=== PATIENT | female | born 1975 | race Caucasian/White ===

== ENCOUNTER 2019-12-10 19:08 | Observation (INO) | payer MEDICAID ==
[~2019-12-10] VITALS: Ht 152.4 cm; Wt 118.2 kg
--- NOTE | ~2019-12-10 | HEMODYNAMI ---
PATIENT:MERLE GONZALEZ MEDICAL RECORD: [id number] : 75 LOCATION:[facility] D.2116 ADMISSION DATE: 12/10/19 Generatedon:12/11/201913:39 Patient name: MERLE GONZALEZ Patient #: [id number] SSN: [id number] : 1975 Date of study: 12/11/2019 Page: Of Hemodynamic Procedure Report Patient Data Patient Demographics Procedure consent was obtained First Name: MERLE Gender: Female Last Name: LISA : 1975 Middle Initial: RAJINDER Age: 44 year(s) Patient #: [id number] Race: SSN: [id number] Additional ID: [id number] Contact details [address]: [address] [place] [address] State: [place] City: [place] Zip code: [address] Admission Admission Data Admission Date: 12/10/2019 Admission Time: 21:36 Arrival Date: 12/11/2019 Arrival Time: 13:00 Admit Source: Other Insurance Payor: Medicaid Room #: D.2116 [facility] #: [id number] Height (in.): 59.84 BSA: 2.08 (m2) Height (cm.): 152 BMI: 51.07 (kg/m2) Weight (lbs.): 260.15 Weight (kg.): 118 Lab Results Lab Result Date: 12/11/2019 Lab Result Time: 0:00 Biochemistry Name Units Result Min Max BUN mg/dl 13 --(--*-)-- 7 18 Creatinine mg/dl 1 --(--*-)-- 0.6 1.3 eGFR ml/min 64.55762 *-(----)-- 90 120 NONAFRICAN CBC Name Units Result Min Max Hemoglobin g/dl 12.7 -*(----)-- 13.5 17.5 Procedure Procedure Types Cath Procedure Diagnostic Procedure LHC LH w/Coronaries Sedation Charges Moderate Sedation up to 15 minutes Procedure Description Procedure Date Procedure Date: 12/11/2019 Procedure Start Time: 13:24 Procedure End Time: 13:31 Procedure Staff Name Function Maru Perez RT Monitor Juan Landin RN Nurse Home Simental MD Performing Physician Idania Faustin RT Scrub Procedure Data Cath Procedure Fluoroscopy Diagnostic fluoroscopy Total fluoroscopy Time: 0.7 time: 0.7 min min Diagnostic fluoroscopy Total fluoroscopy dose: 310 dose: 310 mGy mGy Contrast Material Contrast Material Type Amount (ml) Isovue 300 29 Entry Location Entry Primary Successful Side Size Upsize Upsize Entry Closure Succes sful Closure Location (Fr) 1 (Fr) 2 (Fr) Remarks Device Remarks Femoral Right 5 Fr Exoseal artery Estimated blood loss: 5 ml Diagnostic catheters Device Type Used For End Catheter Placement MULTIPACK JL 4.0 5Fr Left Coronary catheter Angiography MULTIPACK 3DRC 5Fr Right Coronary catheter Angiography MULTIPACK Pigtail 5 Fr LV Angiography catheter Procedure Complications No complications Procedure Medications Medication Administration Route Dosage Oxygen etCO2 Nasal cannula 2 l/min Lidocaine 2% added to field 20 Heparin Flush Bag added to field 2 bags (1000units/500ml NS) 0.9% NaCl I.V. 100 ml/hr Versed I.V. 2 mg Fentanyl I.V. 100 mcg Versed I.V. 2 mg Fentanyl I.V. 50 mcg Versed I.V. 1 mg Fentanyl I.V. 50 mcg Versed I.V. 2 mg Hemodynamics Rest BSA: 2.08 (m2) HGB: 12.7 (g/dl) O2 Consumption: Estimated: 207.77 (ml/min) O2 Co nsumption indexed: Estimated:99.89 (ml/min/m) Heart Rate: 69 (bpm) Pressure Samples Time Site Value (mmHg) Purpose Heart Use Rate(bpm) 13:28 LV 98/2,2 Snapshot 68 13:29 AO 107/71(88) Pullback 87 Gradients Valve Time Site Site 2 Mean SEP/DFP Peak To Heart Use 1 (mmHg) (sec/min) Peak Rate (mmHg) (bpm) Aortic 13:29 LV AO 87 107/71(88) Snapshots Pre Cath Intra NCS Post Cath Vital Signs Time Heart Resp SPO2 etCO2 NIBP (mmHg) Rhythm Pain Sedation Rate (ipm) (%) (mmHg) Status Level (bpm) 13:04:18 74 19 95 18.7 127/72(99) NSR 0 (11) 10(A) , No pain 13:08:34 74 11 100 27.7 120/73(92) NSR 0 (11) 10(A) , No pain 13:12:43 68 24 92 27.7 118/82(97) NSR 0 (11) 10(A) , No pain 13:16:53 69 16 95 31.5 114/78(100) NSR 0 (11) 10(A) , No pain 13:21:03 75 16 94 33.7 125/71(118) NSR 0 (11) 10(A) , No pain 13:25:17 68 19 95 24 115/62(87) NSR 0 (11) 10(A) , No pain 13:29:27 71 21 95 24.7 119/74(94) NSR 0 (11) 10(A) , No pain Medications Time Medication Route Dose Verified Delivered Reason Notes Eff ectiveness by by 13:06:43 Oxygen etCO2 2 Home Buffie used for Nasal l/min St Oral Landin special makeup fx artist instructor cannula 13:06:49 Lidocaine 2% added 20ml Home Home for local to vial Count Includes [facility] anesthetic field MD BILL 13:06:54 Heparin Flush added 2 Home Home used for Bag to bags Count Includes [facility] procedure (1000units/500ml field MD BILL NS) 13:07:02 0.9% NaCl I.V. 100 Home Buffie Per ml/hr St Oral Landin RN physician 13:07:12 Versed I.V. 2 mg Home Buffie for HolaOral Landin RN sedation 13:07:18 Fentanyl I.V. 100 Home Buffie for mcg HolaOral Landin RN sedation 13:13:40 Versed I.V. 2 mg Home Buffie for HolaOral Landin RN sedation 13:13:43 Fentanyl I.V. 50 Home Buffie for mcg HolaOral Landin RN sedation 13:20:14 Fentanyl I.V. 50 Home Buffie for mcg HolaOral Landin RN sedation 13:20:58 Versed I.V. 1 mg Home Buffie for HolaOral Landin RN sedation 13:26:02 Versed I.V. 2 mg Home Buffie for HolaOral Landin RN sedation Procedure Log Time Note 12:31:17 Diagnostic Cath Status : Elective 12:32:07 Informed consent obtained and on chart 12:33:11 Admit Source: Other 12:33:12 Arrival Date: 12/11/2019 1:00:00 PM 12:33:45 Insurance Payor : Medicaid 12:33:48 Patient Height : 59.84 inches 12:33:51 Patient Weight : 260.15 lbs 12:34:29 Lab Result : eGFR NONAFRICAN 64.46353 ml/min 12:34:29 Lab Result : Hemoglobin 12.7 g/dl 12:34:29 Lab Result : BUN 13 mg/dl 12:34:29 Lab Result : Creatinine 1 mg/dl 12:34:35 Procedure Status Urgent Heart Cath (IP). 12:34:38 Idania JUAREZ(R) sent for patient. Start room use. 12:34:39 Time tracking: Regular hours (M-F 7:00 - 5:00) 12:34:43 Plan of Care:Hemodynamics will remain stable., Cardiac rhythm will remain stable., Comfort level will be maintained., Respiratory function will remain adequate., Patient/ family verbilizes understanding of procedure., Procedure tolerated without complication., Recovers from procedure without complications.. 13:03:07 Vital chart was started 13:03:55 Patient received from Med II to CCL 2 Alert and oriented. Tansferred to table in Supine position. 13:03:58 Warm blankets applied, and kaila hugger turned on for patient comfort. 13:04:00 ECG and BP/O2 sat monitors applied to patient. 13:04:00 Correct patient and procedure confirmed by team. 13:04:01 Baseline sample Acquired. 13:04:04 Rhythm: sinus rhythm 13:04:07 Full Disclosure recording started 13:04:11 H&P Date Dictated: 12/11/2019 Within 30 days and on chart., H&P Addendum completed by physician on day of procedure. (MUST COMPLETE FOR ALL OUTPATIENTS). 13:04:14 Pre-op teaching completed and patient verbalized understanding. 13:04:14 Pre-procedure instructions explained to patient. 13:04:16 Family in patients room. 13:04:32 Is the patient allergic to Iodine/contrast media? No. 13:04:33 Was the patient premedicated? Yes 13:04:42 Is patient on blood thinner?Yes 13:04:47 ACC The patient was administered the following blood thiners within the last 24 hours: ACCPlavix 13:04:51 Patient diabetic? No. 13:04:55 Previous problem with sedation/anesthesia? No ? 13:04:59 Snore? Yes 13:05:01 Sleep apnea? No 13:05:03 Opens mouth fully? Yes 13:05:03 Deviated septum? No 13:05:04 Sticks out tongue? Yes 13:05:08 Airway obstruction? No ? 13:05:11 Dentures? No ? 13:05:15 Pre procedure: right dorsailis pedis pulse 2+ Normal; easily identifiable; not easily obliterated 13:05:17 Pre procedure: left dorsailis pedis pulse 2+ Normal; easily identifiable; not easily obliterated 13:05:20 Patient pain scale 0/10 ?. 13:05:25 IV patent on arrival in left forearm with 0.9% NaCl at KVO. 13:05:29 Lab results completed and on chart. 13:05:58 Stress Test: no; N/A ? 13:06:03 Right groin area was prepped with chlora-prep and draped in sterile fashion 13:06:04 Sharps counted by scrub and verified by R.N. 13:06:04 Alarms reviewed by R. N. 13:06:05 Physician arrived 13:06:06 Final Timeout: patient, procedure, and site verified with staff and physician. All members of the team are in agreement. 13:06:06 --------ALL STOP TIME OUT------ 13:06:08 Right groin site verified by team. 13:06:11 Fire Safety Assessment: A--An alcohol-based skin anteseptic being used preoperatively., C--Open oxygen or nitrous oxide is being used., D--An ESU, laser, or fiber-optic light is being used. 13:06:14 Physical assessment completed. ASA score P 2 - A patient with mild systemic disease as per Home Simental MD. 13:06:43 Oxygen 2 l/min etCO2 Nasal cannula was administered by Juan Landin RN; used for procedure; Verbal order read back and verified. 13:06:49 Lidocaine 2% 20ml vial added to field was administered by Home Simental MD; for local anesthetic; Verbal order read back and verified. 13:06:54 Heparin Flush Bag (1000units/500ml NS) 2 bags added to field was administered by Home Simental MD; used for procedure; Verbal order read back and verified. 13:07:02 0.9% NaCl 100 ml/hr I.V. was administered by Juan Landin RN; Per physician; Verbal order read back and verified. 13:07:12 Versed 2 mg I.V. was administered by Juan Landin RN; for sedation; Verbal order read back and verified. 13:07:18 Fentanyl 100 mcg I.V. was administered by Juan Landin RN; for sedation; Verbal order read back and verified. 13:08:40 2) 60-89 Mildly reduced kidney function, and other findings (as for stage 1) point to kidney disease. 13:09:38 Maximum allowable contrast dose (3.7 X eGFR X 0.75)177.6 ml. 13:09:42 Sedation plan: IV Moderate Sedation Medication:Versed, Fentanyl 13:12:48 Use device set Femoral Dx 13:12:49 ACIST Syringe (53083) opened to sterile field. 13:12:50 Medline Cath Pack ([id number]) opened to sterile field. 13:12:50 Bag Decanter (2002S) opened to sterile field. 13:12:51 ACIST Hand Control (48743) opened to sterile field. 13:12:52 DIAGNOSTIC Multipack 5Fr catheter set (QB4559) opened to sterile field. 13:12:52 ACIST Manifold (10973) opened to sterile field. 13:12:53 Tegaderm 4 x 4 (1626W) opened to sterile field. 13:12:54 EMERALD Guide Wire (854-516) opened to sterile field. 13:12:54 SHEATH 5FR Darien (CBX468) opened to sterile field. 13:13:40 Versed 2 mg I.V. was administered by Juan Landin RN; for sedation; Verbal order read back and verified. 13:13:43 Fentanyl 50 mcg I.V. was administered by Juan Landin RN; for sedation; Verbal order read back and verified. 13:20:14 Fentanyl 50 mcg I.V. was administered by Juan Landin RN; for sedation; Verbal order read back and verified. 13:20:58 Versed 1 mg I.V. was administered by Juan Landin RN; for sedation; Verbal order read back and verified. 13:24:16 Procedure started. 13:24:29 Local anesthetic to right femoral artery with Lidocaine 2% by Home Simental MD.INITIAL ACCESS ONLY 13:24:41 A 5 Fr sheath was inserted into the Right Femoral artery 13:25:51 A MULTIPACK JL 4.0 5Fr catheter was advanced over the wire and used for Left Coronary Angiography. 13:26:02 Versed 2 mg I.V. was administered by Juan Landin RN; for sedation; Verbal order read back and verified. 13:27:12 Injector settings: Ml/sec: 3, Volume: 6, 13:27:19 Catheter removed. 13:27:24 A MULTIPACK 3DRC 5Fr catheter was advanced over the wire and used for Right Coronary Angiography. 13:27:59 RCA angiography performed. 13:28:02 Injector settings: Ml/sec: 3, Volume: 6, 13:28:05 Catheter removed. 13:28:36 A MULTIPACK Pigtail 5 Fr catheter was advanced over the wire and used for LV Angiography. 13:28:51 LV hemodynamics recorded. 13:28:53 LV gram done using CHAUHAN 13:28:56 Injector settings: Ml/sec: 5, Volume: 15, 13:29:05 EF : 55 % 13:29:08 ACCDominant side:Right 13:29:19 Catheter removed. 13:29:21 EXOSEAL 5Fr (EX500) opened to sterile field. 13:29:31 Sheath removed intact; hemostasis achieved with Exoseal to the Right Femoral artery. 13:29:33 Procedure ended.(Physican Out) 13:30:08 Fluoroscopy time 00.70 minutes. 13:30:10 Fluoroscopy dose: 310 mGy 13:30:10 Flurop Dose total: 310 13:30:16 Dose Area Product 12345 mGy/cm. 13:30:19 Contrast amount:Isovue 300 29ml. 13:30:21 Maximum allowable dose exceeded? No. 13:30:22 Sharps counted by scrub and verified by R.N. 13:30:23 Insertion/operative site no bleeding no hematoma. 13:30:26 Post-op/insertion site Right Femoral artery dressed using a 4 x 4 and Tegaderm. 13:30:29 Post procedure rhythm: unchanged. 13:30:32 Estimated blood loss: 5 ml 13:30:34 Patient needs reinforcement of post procedure teaching. 13:30:34 Post procedure instruction explained to patient.Patient verbalizes understanding. 13:30:45 Procedure type changed to Cath procedure, Diagnostic procedure, LHC, C w/Coronaries, Sedation Charges, Moderate Sedation up to 15 minutes 13:30:47 Procedure and supply charges have been captured, reviewed, submitted and are correct. 13:31:04 Procedure Complication : No complications 13:31:10 Vital chart was stopped 13:31:13 [facility] Findings: mild to moderate CAD (<70%) 13:31:14 Operative report dictated upon procedure completion. 13:31:15 See physician's report for complete and final results. 13:31:16 Report given to Pre/Post Procedure Room. 13:31:30 Patient transfered to [facility] with Stretcher. 13:31:33 Full Disclosure recording stopped 13:31:33 Procedure ended. 13:31:39 End room use (Document Last) 13:32:03 End room use (Document Last) 13:32:27 End room use (Document Last) Device Usage Item Name Manufacture Quantity Catalog Hospital Part Current Minimal L ot# / Number Charge Number Stock Stock Serial# Code ACIST Acist 1 [id number] 146349 520411 195889 20 Syringe Medical (75921) Systems Inc Bag Microtek 1 2001S 208708 01041 943775 5 Decanter Medical Inc. () Medline Medline 1 [id number] 014099 32876 758405 5 Cath Pack ([id number]) ACIST Hand Acist 1 55816 856152 840353 976505 5 Control Medical (76064) Systems Inc ACIST Acist 1 91366 938302 878735 546045 5 Manifold Medical (81890) Systems Inc DIAGNOSTIC Cardinal 1 [id number] 651354 29764 136691 30 Multipack Health 5Fr catheter set (CN9662) Tegaderm 4 3M 1 1626W 168125 334130 226131 5 x 4 (1626W) SHEATH 5FR Terumo 1 HVG229 759556 276721 465112 5 [place] (OHH209) EMERALD Cardinal 1 502-455 951098 471010 071920 5 Guide Wire Ganjiwang (519-067) MULTIPACK Cardinal 1 407017 5 JL 4.0 5Fr Health catheter MULTIPACK Cardinal 1 342989 5 3DRC 5Fr Health catheter MULTIPACK Cardinal 1 995006 5 Pigtail 5 Health Fr catheter EXOSEAL 5Fr Cardinal 1 EX500 144832 165877 221879 10 (EX500) Health Signature Audit [place] Stage Time Signature Unsigned Intra-Procedure 12/11/2019 Maru Perez 1:32:03 PM RT(R) Intra-Procedure 12/11/2019 uJan Landin RN 1:32:27 PM Intra-Procedure 12/11/2019 Home Simental MD 1:32:46 PM Oral BILL 12/11/2019 1:33:26 PM Intra-Procedure 12/11/2019 Home Ny 1:39:28 PM Oral BILL Signatures Monitor : Maru Perez RT Signature : Date : Time : Nurse : Juan Landin RN Signature : Date : Time : Performing Physician : Signature : Home Simental MD Date : Time : [facility] [address] [place] [address]
[2019-12-10 19:41] VITALS: BP 119/78
--- NOTE | 2019-12-10 19:55 | NUR ---
NOTIFIED DR REESE AND REVIEWED PT's BEHAVIOR AND ASSESMENT RESULTS. PT IS A LOW RISK PER DR REESE. DR REESE STATED TO GIVE RESOURCES TO PT AT TIME OF DISCHARGE . NO FURTHER ORDERS AT THIS TIME. REVIEWED RESOURCE WITH PT AND SHE VERBALIZED UNDERSTANDING.
--- NOTE | 2019-12-10 19:59 | NUR ---
PT EVALUATED BY PANKAJ RODAS. FOUND TO BE LOW RISK.
[2019-12-10 20:18] LABS: BASOPHILS 0.3 % (0-2); EOSINOPHILS 0.9 % (0-7); HEMATOCRIT 38.8 % (36.0-48.0); HEMOGLOBIN 12.9 g/dL (12-16); IMMATURE GRANULOCYTES 0.3 % (0-5); LYMPHOCYTES 36.5 % (15-50); MCH 27.7 pg (26.0-34.0); MCHC 33.2 g/dL (31.0-37.0); MCV 83.3 fL (80.0-100.0); MONOCYTES 4.8 % (2-11); NEUTROPHILS 57.2 % (40-80); PLATELET COUNT 298 10x3/uL (130-400); RBC 4.66 10x6/uL (4.00-5.40); RDW 13.6 % (11.5-14.5); WBC 11.5 10x3/uL (4.8-10.8)
[2019-12-10 20:33] LABS: APTT 42.5 SECONDS (22.8-39.4)
[2019-12-10 20:34] LABS: D-DIMER-QUANTITATIVE 0.31 ug/mLFEU (0.20-0.54)
[2019-12-10 20:39] LABS: CALC OSMOLALITY 270 mosm/kg (275-300); CALCIUM 8.8 mg/dL (8.5-10.1); CARBON DIOXIDE 21.7 mmol/L (21.0-32.0); CHLORIDE - SERUM 103 mmol/L (98-107); CREATININE - SERUM 0.8 mg/dL (0.6-1.3); GLUCOSE 89 mg/dL (74-106); POTASSIUM - SERUM 3.5 mmol/L (3.5-5.1); SODIUM 137 mmol/L (136-145); UREA NITROGEN 7 mg/dL (7-18); eGFR NON AFRICAN AMERICAN 82 mL/min (90-120)
[2019-12-10 20:47] VITALS: BP 126/67
[2019-12-10 20:48] LABS: INR 1.05 (0.85-1.17); PROTIME 13.6 SECONDS (11.6-15.0)
[2019-12-10 20:51] LABS: ALBUMIN 3.3 g/dL (3.4-5.0); ALKALINE PHOSPHATASE 37 U/L (30-120); ALT (SGPT) 31 U/L (10-68); BILIRUBIN - TOTAL 0.53 mg/dL (0.2-1.3); CKMB 0.1 U/L (0.0-3.6); CREATINE KINASE 67 UL (21-215); MAGNESIUM - SERUM 1.9 mg/dL (1.8-2.4); PROTEIN - SERUM 7.7 g/dL (6.4-8.2)
[2019-12-10 20:52] LABS: TROPONIN-I < 0.017 ng/mL (0.000-0.060)
[2019-12-10] MEDS ORDERED: CYCLOBENZAPRINE10 MG PO (22:53)
[2019-12-10] MEDS ORDERED: ULTRAM50 MG PO (22:54)
[2019-12-10] MEDS ORDERED: GABAPENTIN300 MG PO (22:55)
[2019-12-11 00:56] VITALS: Ht 152.4 cm; Wt 118.2 kg
[2019-12-11 04:34] VITALS: BP 94/51
[2019-12-11 07:04] LABS: BASOPHILS 0.3 % (0-2); EOSINOPHILS 1.3 % (0-7); HEMATOCRIT 39.3 % (36.0-48.0); HEMOGLOBIN 12.7 g/dL (12-16); IMMATURE GRANULOCYTES 0.4 % (0-5); LYMPHOCYTES 29.6 % (15-50); MCH 27.4 pg (26.0-34.0); MCHC 32.3 g/dL (31.0-37.0); MCV 84.9 fL (80.0-100.0); MEAN PLATELET VOLUME 10.3 fL (7.4-10.4); MONOCYTES 6.1 % (2-11); NEUTROPHILS 62.3 % (40-80); RBC 4.63 10x6/uL (4.00-5.40); RDW 13.8 % (11.5-14.5)
[2019-12-11 07:11] LABS: PLATELET COUNT 377 10x3/uL (130-400); WBC 7.6 10x3/uL (4.8-10.8)
[2019-12-11 07:57] LABS: ALBUMIN 3.2 g/dL (3.4-5.0); ALKALINE PHOSPHATASE 38 U/L (30-120); ALT (SGPT) 32 U/L (10-68); BILIRUBIN - TOTAL 0.49 mg/dL (0.2-1.3); CALC OSMOLALITY 275 mosm/kg (275-300); CALCIUM 8.6 mg/dL (8.5-10.1); CARBON DIOXIDE 25.1 mmol/L (21.0-32.0); CHLORIDE - SERUM 103 mmol/L (98-107); CKMB 0.2 U/L (0.0-3.6); CREATINE KINASE 60 UL (21-215); GLUCOSE 98 mg/dL (74-106); PHOSPHOROUS 3.6 mg/dL (2.5-4.9); PROTEIN - SERUM 7.4 g/dL (6.4-8.2); SODIUM 138 mmol/L (136-145); THYROID STIMULATING HORMONE 1.18 uIU/mL (0.36-3.74); TROPONIN-I < 0.017 ng/mL (0.000-0.060); eGFR NON AFRICAN AMERICAN 64 mL/min (90-120)
[2019-12-11 08:02] LABS: UREA NITROGEN 13 mg/dL (7-18)
[2019-12-11 09:08] LABS: LDL-HDL RATIO 2.6 ratio (1.5-3.5)
--- NOTE | 2019-12-11 09:15 | NUR ---
CONSENTS SIGNED FOR [facility]. WILL CONT. PLAN OF CARE.
[2019-12-11 09:30] VITALS: BP 123/73
[2019-12-11 10:36] LABS: BILIRUBIN NEGATIVE (NEGATIVE); GLUCOSE NEGATIVE (NEGATIVE); KETONE NEGATIVE (NEGATIVE); NITRITE NEGATIVE (NEGATIVE); SPECIFIC GRAVITY 1.015 (1.005-1.020); UROBILINOGEN NORMAL (NORMAL); WHITE CELLS - URINE 0-5 /hpf (NEGATIVE)
[2019-12-11 10:37] LABS: BACTERIA FEW /hpf (NEGATIVE); EPITHELIAL CELLS OCC /hpf (0-5)
--- NOTE | 2019-12-11 13:00 | NUR ---
PRE-OPS GIVEN. TO HOME HEALTH ADMINISTRATOR BY BED.
[2019-12-11 13:44] VITALS: BP 124/87
--- NOTE | 2019-12-11 14:00 | NUR ---
BACK FROM [employer]. VS WNL. RIGHT GROIN STABLE WITHOUT BLEEDING OR HEMATOMA NOTED. WILL MONITOR.
--- NOTE | 2019-12-11 16:00 | NUR ---
BED REST UP. GROIN STABLE.
--- NOTE | 2019-12-11 16:48 | NUR ---
IV AND TELEMETRY DCD. DC PLANS GIVEN. UNDERSTANDING VOICED. ESCORTED TO CAR BY W/C.
--- NOTE | 2019-12-12 09:04 | MORECARE ---
CASE MANAGEMENT DISCHARGE SUMMARY PATIENT: MERLE GONZALEZ UNIT: [id number] ADM DATE: 12/10/19 AGE: 44 : [birth year] SEX: F ROOM/BED: D.9616 AUTHOR: SHARI FREEMAN PHYSICIAN: REFERRING PHYSICIAN: ANGI MCGOWAN MD DATE OF SERVICE: 12/12/19 Discharge Plan Patient Name: MERLE [facility]ONZALEZ [facility] [facility] 1975 Planned Disposition: Home Anticipated Discharge Date: 12/11/19 Discharge Date: 12/11/2019 Expected LOS: 1 Initial Reviewer: [email or web address] Initial Review Date: 12/12/2019 Generated: 12/12/19 10:03 am Patient Name: MERLE GONZALEZ Page [id number] at 0904 All edits/amendments must be made on the electronic document DICTATION DATE: 12/12/19902 REFRACTORY MANAGER: LINDA 12/12/19 09 RPT#: [id number] DC DATE:12/11/19 STATUS: DIS IN [facility] [address] [place] [address] END OF REPORT
--- NOTE | 2019-12-12 09:07 | CN ---
PATIENT NAME:LEE ANN GONZALEZ MEDICAL RECORD: [id number] : 75 LOCATION:[facility] D.2116 ADMIT DATE: 12/10/19 ACCOUNT: [id number] CONSULTING PHYSICIAN: ANGI MONET MD REFERRING PHYSICIAN: ANGI MCGOWAN MD DATE OF CONSULTATION: 12/11/2019 HISTORY OF PRESENT ILLNESS: Lee Ann Gonzalez is a 44-year-old female with no known history of coronary artery disease, has a strong family history of coronary artery disease, presented initially to [facility] with chest pain, palpitations, found to have abnormal ECG, initially elevated cardiac enzymes with elevated troponin. She has a strong family history of coronary artery disease. She was transferred here for acute coronary syndrome. PAST MEDICAL HISTORY: Includes a history of fibromyalgia, polycystic ovarian disease, irritable bowel syndrome. ALLERGIES: SULFA, CODEINE, LATEX. MEDICATIONS AT HOME: Include Flexeril 10 mg p.o. t.i.d., Neurontin 300 at bedtime, tramadol 50 q.6 p.r.n. SOCIAL HISTORY: Nonsmoker, nondrinker. Easily takes care of all her ADLs. Occasional marijuana use. No set exercise program. REVIEW OF SYSTEMS: The patient reports easy bruising but reports no swollen glands. The patient reports no fever, no night sweats, no significant weight gain, no significant weight loss. No significant exercise tolerance. The patient reports no dry eyes, no irritation, no vision change. Patient reports no difficulty hearing and no ear pain. Patient reports no frequent nose bleeds or nose and sinus problems. Patient reports on arm pain on exertion. No shortness of breath while lying down. No history of heart murmur. Patient reports no cough, no wheezing or coughing up blood. Patient reports no abdominal pain, no vomiting. Normal appetite. No diarrhea and not vomiting blood. No nausea and no constipation. Patient reports no incontinence. No difficulty urinating. No hematuria. No increased frequency. Patient reports no muscle aches. No weakness, no arthralgias, no back pain. No swelling of the extremities. Patient reports no abnormal mole, no jaundice, no rashes. Reports no loss of consciousness. No weakness and no numbness. No seizures, dizziness, or headaches. The patient reports no depression, no sleep disturbance, feeling safe in a relationship and no alcohol abuse. Patient reports on fatigue. Reports no runny nose or sinus pressure. No itching, no hives, and no frequent sneezing. PHYSICAL EXAMINATION: GENERAL: Pleasant female, in no acute distress, appears stated age. VITAL SIGNS: Blood pressure 130/76, pulse 87 and regular. HEENT: Normocephalic, atraumatic. NECK: No bruits are noted. HEART: Regular, II/ systolic ejection murmur. LUNGS: Good air excursion. ABDOMEN: Soft, nontender. EXTREMITIES: Pulses are well preserved. There is no edema. NEUROLOGIC: Grossly intact. CONSULT REPORT [id number] LEE ANN GONZALEZ DIAGNOSTIC DATA: EKG shows left axis, nonspecific ST-T changes laterally. IMPRESSION: Acute coronary syndrome. Initial enzymes elevated. PLAN: For diagnostic angiography, intervention based on the above. TRANSINT:[id number] Voice Confirmation ID: [id number] DOCUMENT ID: [id number] ANGI MONET MD at 0907 CC: [id number] DICTATION DATE: 12/11/19 0844 SUCTION OPERATOR: 12/11/19 1206 DIS IN 12/11/19 [address] [place] [address]
--- NOTE | 2019-12-12 09:07 | OP ---
PATIENT NAME: MERLE GONZALEZ MEDICAL RECORD: [id number] :75 LOCATION:D.M2 D.2116 ADMISSION DATE:12/10/19 SURGEON: ANGI MONET MD DATE OF OPERATION: 12/11/2019 PROCEDURE: Left heart catheterization, selective coronary angiography, right femoral artery approach. CATHETERS: A 5-Emirati sheath, 5/4 left and right Kayden, 5/4 pig. The procedure was well tolerated. The patient was returned to woods, sheath removed. ExoSeal device placed. FINDINGS: Left ventriculography in 30-degree CHAUHAN view: Normal wall motion and normal systolic function. CORONARY ANATOMY: LEFT MAIN: Left main is free of disease. LAD: Free of disease in the diagonal system. CIRCUMFLEX: Circumflex is free of disease in the marginal system. RIGHT CORONARY ARTERY: Large, dominant right, free of disease. IMPRESSION: Normal left ventricular systolic function, normal coronary anatomy. TRANSINT:[id number] Voice Confirmation ID: [id number] DOCUMENT ID: [id number] ANGI MONET MD at 0907 CC: [id number] DICTATION DATE: 12/11/19 1340 ER NURSE: 12/11/19 1517 DIS IN 12/11/19 [facility] [address] [place] [address]
== END 2019-12-11 16:49 | disposition home or self-care (01) ==
LOC: D.ER 19:08 → D.M2 21:36 → OBSVTIME 21:36 → D.M2 21:36
PROVIDERS: Family Medicine; Internal Medicine Interventional Cardiology; ADMIT Family Medicine; ATTEND Family Medicine
DX: I20.9 Angina pectoris, unspecified (principal); F41.8 Other specified anxiety disorders; N18.9 Chronic kidney disease, unspecified; K58.9 Irritable bowel syndrome, unspecified; F12.20 Cannabis dependence, uncomplicated; I24.9 Acute ischemic heart disease, unspecified